=== PATIENT | male | born 1990 | race Caucasian/White ===

== ENCOUNTER 2022-09-19 14:49 | Emergency (ER) | payer MEDICAID ==
[~2022-09-19] VITALS: Ht 170.2 cm; Wt 90.0 kg
[2022-09-19] MEDS ORDERED: albuterol (15:27)
[2022-09-19] MEDS ORDERED: ALBUTEROL (0.083%) 2.5MG/3ML NEB HHN STA (15:30)
[2022-09-19] MEDS ORDERED: IPRATROPIUM BROMIDE (0.02%) 0.5MG/2.5ML NEB HHN STA (15:30)
[2022-09-19 16:02] LABS: BASOPHILS % 0.5 % (0.0-2.0); EOSINOPHILS % 7.4 % (0.0-5.0); HEMATOCRIT. 42.4 % (42.0-52.0); HEMOGLOBIN. 14.2 g/dL (14.0-18.0); LYMPHOCYTES % 21.9 % (20.0-50.0); MEAN CORPUSCULAR HEMOGLOBIN 27.2 pg (28.0-32.0); MEAN CORPUSCULAR VOLUME 81.6 fL (80.0-94.0); MEAN PLATELET VOLUME 7.7 fl (7.4-10.4); MONOCYTES % 7.1 % (2.0-8.0); NEUTROPHILS % 63.1 % (40.0-76.0); PLATELET 279 x1000/uL (130-400); RED CELL DISTRIBUTION WIDTH 14.1 % (11.6-14.6)
[2022-09-19 16:10] LABS: CHLORIDE 108 mEq/L (98-107)
[2022-09-19 16:30] LABS: ETHANOL BLOOD < 10 mg/dL (-10)
[2022-09-19] MEDS ORDERED: IPRATROPIUM BROMIDE (0.02%) 0.5MG/2.5ML NEB HHN SCH (18:50)
[2022-09-19 19:00] VITALS: PULSE 70; RESP 20; O2SAT 99
[2022-09-19] MEDS ORDERED: ALBUTEROL (0.083%) 2.5MG/3ML NEB HHN SCH (19:00)
[2022-09-19] MEDS ORDERED: ACETAMINOPHEN 325MG TABLET PO ONE (20:00)
[2022-09-19] MEDS ORDERED: IBUPROFEN 400MG TABLET PO ONE (20:00)
[2022-09-19] MEDS ORDERED: ALBU6.7H3 INH (21:39)
[2022-09-19] MEDS ORDERED: P50 MT (21:39)
[2022-09-19 22:00] VITALS: BP 114/66; PULSE 65; RESP 16; TEMP 98.5
== END 2022-09-19 22:23 | disposition home or self-care (01) ==
LOC: ER 14:49
DX: R07.89 Other chest pain (principal); F17.290 Nicotine dependence, other tobacco product, uncomplicated; J45.909 Unspecified asthma, uncomplicated
CPT/HCPCS: 80053; 80320; 83880; 85025; 84484; 36415; 71045; 94640; 93005; 99285; 99406; Z7610 ×4; G0480